=== PATIENT | female | born 1990 | race African-American/Black ===

== ENCOUNTER 2016-08-25 07:56 | Emergency (ER) | payer OTHER ==
--- NOTE | ~2016-08-25 | CR181 ---
[facility] A Service of [facility] & [facility] RADIOLOGY TEXT RESULTS PATIENT: JOBY TANG LOCATION: [facility] : [birth year] UNIT #: [id number] AGE: [address]: Letha Garces SEX: F ORDER DR: [id number] [facility] [address] [place], [place] [address] [id number] E MR#: [id number] Acc #: [id number] NAME: JOBY TANG : 1990 SEX: F STUDY DATE/TIME: 08/25/2016 8:50 UNIT: [facility] ROOM: STUDY DESCRIPTION: CR Lumbar Spine 2 or 3 Views Attending Physician: Letha Garces Pa-C Ordering Physician: Letha Garces Pa-C Primary Care Physician: [facility] MEDICAL IMAGING REPORT This report is preliminary unless electronic signature is present EXAM Lumbar spine 3-view series HISTORY Back pain down both legs for 6 years. FINDINGS AP and lateral projections of the lumbar segment show good mineralization of both anterior and posterior elements. They are all anatomically normal without indication of fracture, dislocation, or malignant change of a sclerotic or lytic type. There is no congenital defect noted. The sacroiliac joints are normal. IMPRESSION Normal lumbar spine. Dictated by... Juan Daniel Umaña M.D. THIS IS AN ELECTRONICALLY VERIFIED REPORT Juan Daniel Umaña M.D. at 08/25/2016 4:09 PM [facility]AD[facility]/tawanda TD: 08/25/2016 10:48 JOB #: [id number] MEDICAL IMAGING REPORT Page 1 of 1 COPY
== END 2016-08-25 10:14 | disposition home or self-care (01) ==
LOC: CED 07:56
DX: H10.31 Unspecified acute conjunctivitis, right eye (principal); M54.5 Low back pain; G89.29 Other chronic pain
CPT/HCPCS: 72100; 84703; 99283

== ENCOUNTER 2016-09-21 11:12 | Emergency (ER) | payer OTHER | END 2016-09-21 11:54 | disposition home or self-care (01) | LOC: CED 11:12 | DX: S00.83XA Contusion of other part of head, initial encounter (principal); F41.9 Anxiety disorder, unspecified; X58.XXXA Exposure to other specified factors, initial encounter | CPT/HCPCS: 99283 ==